=== PATIENT | female | born 1970 | race Caucasian/White ===

== ENCOUNTER 2020-10-09 14:30 | Emergency (ER) | payer BC ==
[2020-10-09 14:56] VITALS: O2SAT 98
[2020-10-09] MEDS ORDERED: MORPHINE SULFATE 4 MG INJ IM ONE (15:12)
[2020-10-09] MEDS ORDERED: MORPHINE SULFATE 4 MG INJ ONE (15:38)
[2020-10-09 15:43] VITALS: PULSE 60
--- NOTE | 2020-10-09 15:59 | ERPHSYRPT ---
- History of Present Illness Time Seen by Provider: 10/09/20 14:40 Source: patient Exam Limitations: no limitations Patient Subjective Stated Complaint: R shoulder pain Triage Nursing Assessment: pt to ED c/o R shoulder pain onset today. pt rested back into couch and put pressure on R arm and immediately felt "lightning bolt" shoot through arm and now feels stiff and painful. limited ROM r/t pain. pt also c/o neck stiffness on R side. Physician History: 50 years old female with history of fibromyalgia, GERD left-handed dominant presented in the ER with chief complaint of sudden onset sharp shooting pain after she was sitting on the couch and put pressure on the right hand and felt a sharp shooting pain going through shoulder to the whole right upper extremity. She is complaining of pain with minimal movements and movements at the right shoulder are restricted. Denies hearing any popping or snapping sound. Pain is radiating from shoulder to mid arm and base of neck. Tingling sensation in the fingers but no weakness in the hand. No chest pain palpitations or shortness of breath. Occurred: this afternoon Quality: sharpness Severity of Pain-Max: severe Severity of Pain-Current: severe Extremities Pain Location: shoulder: right Modifying Factors: Improves With: immobilization. Worsens With: movement Associated Symptoms: No chest discomfort, No chest pain, No neck pain Allergies/Adverse Reactions: No Known Drug Allergies Allergy (Unverified 10/09/20 14:56) Home Medications: Hydrocodone/Acetaminophen [Vicodin Hp 10-300 mg Tablet] 1 each PO BID 10/09/20 [History] Ibuprofen 600 mg PO TID 10/09/20 [History] Lansoprazole [Prevacid] 15 mg PO DAILY 10/09/20 [History] Multivitamin [Multi-Vitamin Daily] 1 each PO DAILY 10/09/20 [History] Hx Tetanus, Diphtheria Vaccination/Date Given: No Hx Influenza Vaccination/Date Given: Yes Hx Pneumococcal Vaccination/Date Given: No Immunizations Up to Date: Yes Travel Risk - International Travel Have you traveled outside of the country in past 3 weeks: No - Coronavirus Screening Are you exhibiting any of the following symptoms?: No Close contact with a COVID-19 positive Pt in past 14-21 Days: No - Vaccine Status Have you recieved a Covid-19 vaccination: No - Review of Systems Constitutional: No Symptoms Eyes: No Symptoms Ears, Nose, & Throat: No Symptoms Respiratory: No Symptoms Abdominal/Gastrointestinal: No Symptoms Genitourinary Symptoms: No Symptoms Musculoskeletal: Joint Pain Skin: No Symptoms Neurological: No Symptoms Psychological: No Symptoms Endocrine: No Symptoms Hematologic/Lymphatic: No Symptoms - Past Medical History Pertinent Past Medical History: Yes Musculoskeletal History: Arthritis, Degenerative Disk Disease, Fibromyalgia Other Medical History: carpal tunnel, sciatic nerve - Past Surgical History Past Surgical History: Yes Female Surgical History: Tubal Ligation - Social History Smoking Status: Current every day smoker How long have you smoked: years Exposure to second hand smoke: No Drug Use: marijuana Patient Lives Alone: No - Female History Hx Now: No - Nursing Vital Signs Nursing Vital Signs: Initial Vital Signs Temperature 96.7 F 10/09/20 14:46 Pulse Rate 83 10/09/20 14:46 Respiratory Rate 20 10/09/20 14:46 Blood Pressure 147/98 10/09/20 14:46 O2 Sat by Pulse Oximetry 98 10/09/20 14:46 Pain Scale Pain Intensity 8 - Physical Exam General Appearance: no apparent distress, alert Eyes, Ears, Nose, Throat Exam: normal ENT inspection, TMs normal, pharynx normal Neck Exam: normal inspection, non-tender, supple, full range of motion Cardiovascular/Respiratory Exam: chest non-tender, normal breath sounds Back Exam: normal inspection, normal range of motion Shoulder Exam: normal inspection, limited ROM (Right shoulder with tenderness to palpation in the deltoid and trapezius area. Intact distal neurovascular.), soft tissue tenderness Elbow/Forearm Exam: normal inspection, non-tender Wrist Exam: normal inspection, non-tender, no evidence of injury, normal ROM Hand Exam: normal inspection, non-tender, no evidence of injury, normal ROM Neuro/Tendon Exam: normal sensation, normal motor functions Mental Status Exam: alert, oriented x 3, cooperative Skin Exam: normal color SpO2 Interpretation: normal SpO2: 98 O2 Delivery: Room Air Ordered Tests: Active Orders 24 hr Category Date Time Status SHOULDER Stat Exams 10/09/20 15:07 Taken Medication Summary Discontinued Medications Generic Name Dose Route Start Last Admin Trade Name Freq PRN Reason Stop Dose Admin Morphine Sulfate 4 mg 10/09/20 15:12 10/09/20 15:39 Morphine Sulfate 4 Mg Inj IM 10/09/20 15:13 4 mg STAT ONE Administration Morphine Sulfate Confirm 10/09/20 15:38 Morphine Sulfate 4 Mg Inj Administered 10/09/20 15:39 Dose 4 mg .ROUTE .STK-MED ONE - Progress Progress: improved Progress Note: 10/09/20 15:58 She is given morphine for symptomatic relief. X-rays did not show any acute fracture dislocation x-rays reviewed by me. I believe patient has ligamentous strains/sprain causing pressure on the nerves, recommended outpatient follow-up for further evaluation with MRI and continue with pain medication. Discussed signs symptoms of worsening needing return to ER which he seems understanding. 10/09/20 15:59 Counseled pt/family regarding: diagnosis, need for follow-up, rad results - Departure Departure Disposition: Home Clinical Impression: Sprain of shoulder, right Qualifiers: Encounter type: initial encounter Shoulder sprain type: unspecified sprain Qualified Code(s): S43.401A - Unspecified sprain of right shoulder joint, initial encounter Condition: Stable Critical Care Time: No Referrals: TOO - EULOGIO ROLAND NP [NON-STAFF PHY W/O PRIVILEGES] - (Go tomorrow for reevaluation) Instructions: Shoulder Sprain (DC) Additional Instructions: Keep right upper extremity in the sling. Apply ice. Continue with pain medication which you have at home. Return to ER for excruciating pain, numbness or weakness of right upper extremity.
[2020-10-09 16:22] VITALS: BP 133/74
--- NOTE | 2020-10-09 18:46 | XRAY ---
Indication: Pain and numbness. Comparison: None 3 view right shoulder demonstrates minimal acromioclavicular degenerative arthropathy and mild multilevel degenerative spondylosis. No other bony, articular, or soft tissue abnormalities.
== END 2020-10-09 16:22 | disposition home or self-care (01) ==
LOC: ED 14:30
DX: S43.401A Unspecified sprain of right shoulder joint, initial encounter (principal); M25.511 Pain in right shoulder; X50.0XXA Overexertion from strenuous movement or load, initial encounter; Y93.89 Activity, other specified; Y92.89 Other specified places as the place of occurrence of the external cause
CPT/HCPCS: 73030; 96372; 99284; J2270